=== PATIENT | male | born 1970 | race Caucasian/White ===

== ENCOUNTER 2022-04-21 13:38 | Emergency (ER) | payer OTHER, SELFPAY ==
[2022-04-21 13:39] VITALS: BP 138/108; PULSE 121; RESP 18; TEMP 35.9; O2SAT 97; BMI 29.2
--- NOTE | 2022-04-21 14:55 | CT_ITS ---
STUDY: CT ABDOMEN AND PELVIS WITH CONTRAST REASON FOR EXAM: Male, 51 years old. pain, fever, guarding percussion tenderness RADIATION DOSAGE (If Supplied By Facility): CTDIvol = ( 14.57 ) mGy, DLP = ( 824.29 ) mGycm TECHNIQUE: Transaxial images were obtained from the dome of the diaphragm to the symphysis pubis without oral contrast. IV 100mL Isovue-370 was administered. Sagittal and coronal images were reconstructed. Individualized dose optimization techniques were used for this CT. COMPARISON: None. FINDINGS: The visualized lung bases are unremarkable. The visualized portions of the heart are within normal limits. Normal liver. Normal gallbladder and extrahepatic biliary system. Normal spleen. Normal pancreas. Normal bilateral adrenal glands. Normal right kidney. Normal left kidney. Normal visualized stomach. Normal small intestine. Diverticular disease of the colon with most severe involvement of the descending and sigmoid segments without evidence for acute diverticulitis.. The appendix is visualized and appears normal. Normal abdominal aorta. Normal inferior vena cava. Normal retroperitoneum. Normal urinary bladder. Mild nonspecific prominence of the prostate Normal abdominal wall. Lumbar spine demonstrates degenerative change.. There is Grade 1 spondylolisthesis at L5-S1 in association with bilateral spondylolysis CT/Abdomen/Pelvis W IV Cont ONLY IMPRESSION: Diffuse diverticular disease of the colon with most severe involvement of the descending and sigmoid colon without definitive evidence for acute diverticulitis.. However clinical correlation is recommended No evidence for small bowel obstruction. Normal appendix Electronically Signed: Freddie Tong MD at 16:15 EST ,
--- NOTE | 2022-04-21 14:57 | ED.VIS.GI ---
HPI HPI - GI History of Present Illness Chief Complaint: Abd Pain Detail of Chief Complaint: Monty pain, which patient believes is due to a hernia Abdominal Pain/Flank Pain Onset: Days (Pain worse past 24 hours) Context: Sudden Onset Timing: Intermittent and Waxes and wanes Quality: - (Pain) Location: LLQ Current Severity: Mild Maximum Severity: Severe Worsened by: Car ride and Movement Relieved by: Nothing Nausea/Vomiting/Emesis GI Symptom: Negative for Nausea or Vomiting Diarrhea/Melena/Hematochezia GI Symptom: Positive for - (Normal bowel movement this morning); Negative for Diarrhea, Melena or Hematochezia Associated Symptoms Associated Symptoms: Negative for Dysuria, Frequency, Hematuria or Urgency Narrative Narrative: Patient is a 51-year-old male who presents with pain that he localizes to the suprapubic left lower quadrant. He has no medical problems. He does admit to chewing. He does drink 3 beers a day. He denies history of intolerance to greasy or fatty foods. He denies history of pancreatitis. He denies history of constipation or diverticulosis. He denies fever, chills night sweats. He presents from work. He felt he was warm at work. He states he thought he was burning up . Patient denies headache, visual, ocular auditory symptoms. Patient denies cardiac or respiratory symptoms. Patient denies back pain. Patient denies abdominal trauma. Patient denies dysuria, frequency, urgency or hematuria. Patient denies testicular or scrotal pain. Patient denies swelling. Patient denies weight gain or weight loss. Patient denies night sweats. Prior similar symptoms: Yes Recent Illness/Hospitalization: No PFSH PFS Medical History Cardiomegaly Hypertension Home Medications ciprofloxacin HCl 500 mg tablet 500 mg PO BID #14 TABLETS 04/21/22 [Rx Last Taken Unknown] sulfamethoxazole 800 mg-trimethoprim 160 mg tablet 1 tab PO BID #14 TABLETS 04/21/22 [Rx Last Taken Unknown] Allergy/AdvReac Type Severity Reaction Status Date / Time No Known Allergies Allergy Verified 04/21/22 13:40 Surgical History no surgical history no surgical history Social History (Updated 04/21/22 @ 15:[address] Pranav Coello MD) household members: none Smoking Status: Former smoker Smokeless tobacco user: chewing tobacco alcohol intake: current alcohol intake frequency: 3 or more drinks per day substance use type: does not use ROS ROS ED Constitutional Constitutional ED: Reports fever(s) and subjective; Denies chills, sweats or weight loss ENT ENT ED: Denies ear pain, rhinorrhea or sore throat Cardiovascular Cardiovascular: Denies chest pain, palpitations or racing heartbeat Respiratory/Chest Respiratory/Chest: Denies cough, dyspnea or dyspnea on exertion Gastrointestinal Gastrointestinal: Reports abdominal pain; Denies constipation, diarrhea, melena, nausea or vomiting Genitourinary Genitourinary ED: Denies dysuria, hematuria or urinary frequency Musculoskeletal Musculoskeletal: Denies arthralgias, back pain, myalgias or neck pain Integumentary Denies Abrasions or rash Neurologic Neurologic: Denies headache(s), paresthesias or weakness Endocrine Endocrinology: Denies polydipsia, polyphagia or polyuria Hematologic/Lymphatic Hematologic/Lymphatic: Denies easy bleeding, easy bruising or lymphadenopathy EXAM Physical Exam Const Vital Signs: 04/21/22 13:39 04/21/22 15:39 04/21/22 17:00 Temperature 96.7 F L Temperature Source Temporal Pulse Rate 121 H 75 72 Respiratory Rate 18 16 18 Blood Pressure 138/108 H 124/75 H 122/74 H Blood Pressure Mean 118 91 90 Pulse Ox 97 97 99 Oxygen Delivery Method Room Air Room Air Room Air Positive well nourished, well developed and unkempt Constitutional Narrative: Patient does not appear well. General Appearance ED: unkempt and well developed; Negative for NAD or pallor HEENT Reports TM's clear and dry mucous membranes HEENT Narrative: Ears are normal. Nares are patent. Posterior pharynx is normal. normocephalic and atraumatic Tympanic Membrane ED: Yes TM's clear Mouth ED: Yes dry mucous membranes Mouth: dry mucous membranes Eyes PERRL and EOMs intact bilaterally General Eye ED: Negative for pale conjunctiva or scleral icterus Neck no lymphadenopathy, supple and no JVD Resp normal respiratory effort and clear to auscultation bilaterally Cardio regular rhythm, S1 normal heart sound, S2 normal heart sound and no murmurs Rate: tachycardic GI no masses; Negative for non-tender or non-distended Inspection: abdominal distention Auscultation: hyperactive bowel sounds Palpation: soft, tender other (Diffusely), guarding LLQ (Greater left upper and left lower quadrant compared to the right side.) and rebound tenderness present other (Patient has percussion tenderness on the left side.); Negative for rigid, hepatomegaly, splenomegaly, hernia, mass or pulsatile mass Narrative: There is no evidence of inguinal hernia or inguinal lymphadenopathy. Back/Spine no CVA tenderness Back/Spine Narrative: Inspection of the back is normal. Extremity full ROM General Extremety ED: Negative for edema or tenderness General Extremity: Negative for edema Neuro CN's II-XII intact bilaterally and moves all extremities Sensorium / Orientation: alert Psych Appearance: unkempt Skin no wounds General Skin Exam: Negative for jaundice or pallor Lesions: no lesions MDM MDM MDM Narrative Medical decision making narrative: Clinically patient appears dehydrated and ill. His abdominal exam is concerning. Since he is tachycardic with guarding and percussion tenderness need to evaluate for intra-abdominal pathology and specifically diverticulitis, epiploic appendicitis, possible pancreatitis since he does admit to drinking daily. Clinically patient does not have signs or symptoms of pneumonia. To evaluate patient's presentation we will obtain a CBC to assess white count differential. Competence metabolic panel to assess electrolytes, renal function and anion gap CO2. Furthermore to assess transaminases. UA was not obtained since patient has no urinary symptoms. His abdominal exam is not consistent with a hernia. Lab Data Attestation: I reviewed the patient's lab results. Lab results narrative: CBC reveals normal white count with slight shift. Comprehensive metabolic panel is unremarkable. Total bilirubin is 1.4 which is slightly elevated. Lactate elevated 2.2. Labs: Laboratory Results - last 24 hr 04/21/22 04/21/22 04/21/22 15:15 15:15 15:15 WBC 8.7 RBC 4.84 Hgb 14.8 Hct 43.9 MCV 90.7 MCH 30.6 MCHC 33.7 RDW Std Deviation 41.1 RDW Coeff of Junito 12.5 Plt Count 332 MPV 9.4 Immature Gran % (Auto) 0.300 Neut % (Auto) 75.3 H Lymph % (Auto) 13.6 L [place] % (Auto) 9.9 Eos % (Auto) 0.1 Baso % (Auto) 0.8 Absolute Neuts (auto) 6.6 Absolute Lymphs (auto) 1.19 Nucleated RBC % 0 Sodium 138 Potassium 4.2 Chloride 101 Carbon Dioxide 26.0 Anion Gap 11 BUN 17 Creatinine 1.06 Estim Creat Clear Calc 74.40 Est GFR (MDRD) Af Amer 94 Est GFR (MDRD) Non-Af 78 BUN/Creatinine Ratio 16.0 Glucose 111 H Lactic Acid 2.2 H* Calcium 9.6 Total Bilirubin 1.40 H AST 38 H ALT 22 Alkaline Phosphatase 84 Total Protein 7.7 Albumin 4.0 Globulin 3.7 Albumin/Globulin Ratio 1.1 Lipase 77 Radiography Diagnostic Testing: Clinical Impression(s) from Imaging Studies Abdomen/Pelvis CT 04/21/22 14:55 IMPRESSION: Diffuse diverticular disease of the colon with most severe involvement of the descending and sigmoid colon without definitive evidence for acute diverticulitis.. However clinical correlation is recommended No evidence for small bowel obstruction. Normal appendix Electronically Signed: Freddie Tong MD at 16:15 EST Reading Location ID and State: [address] [place] [address] , Service support , Treatment and Re-Evaluation Narrative: With patient's complaints CAT scan finding and the fact that he has significant discomfort we will treat with Augmentin. He has been told he needs increased fiber in his diet. He was referred to through the [facility] since he has no physician and no insurance. Since he has no insurance and will have the papers prescription he was was prescribed Bactrim and ciprofloxacin. Metronidazole was not prescribed since he admits to drinking daily. Discharge Plan Triage Chief Complaint: Abd Pain ED Provider: Pranav Coello Dx/Rx/DC Orders Clinical Impression: Diverticulitis large intestine, Acidosis, lactic, Sinus tachycardia seen on cardiac monitor technician Instructions: ED Diverticulitis Prescriptions: New ciprofloxacin HCl [ciprofloxacin HCl] 500 mg tablet 500 mg PO BID Qty: 14 0RF sulfamethoxazole-trimethoprim [sulfamethoxazole-trimethoprim] 800-160 mg tablet 1 tab PO BID Qty: 14 0RF Primary Care Provider: Care Physician,No Primary Referrals: Briana White [Non-Staff] - 3-5 Days if not improving Care Physician,No Primary [Primary Care Provider] - Disposition Disposition: Home, Self Care
[2022-04-21] MEDS: Morphine 4 MG/ML Syringe IV (15:16)
[2022-04-21] MEDS: Contrast Allergy Safety Check IV (15:17)
[2022-04-21] MEDS: 0.9% Normal Saline 1,000 ML 1000 ML IV (15:17)
[2022-04-21 15:28] LABS: Absolute Lymphocyte Count 1.19 X10^3/uL (0.83-4.51); Absolute Neutrophil Count 6.6 X10^3/uL (2.0-7.7); Basophil# 0.07 X10^3/uL; Basophil% 0.8 % (0-1); Eosinophil# 0.01 X10^3/uL; Eosinophils% 0.1 % (0-5); Hematocrit 43.9 % (40-54); Hemoglobin 14.8 g/dL (13.0-16.5); Lymphocyte # 1.19 X10^3/ul (0.83-4.51); Lymphocyte % 13.6 % (19-41); Mean Corp Hgb Conc 33.7 g/dL (32-36); Mean Corpuscular Hgb 30.6 pg (27.0-32.0); Mean Corpuscular Volume 90.7 fL (80-94); Mean Platelet Vol. 9.4 fl (6.2-12.0); Monocyte# 0.86 X10^3/uL; Monocyte% 9.9 % (0-10); NRBC Flagged by Analyzer 0 % (0-5); Neutrophil # 6.57 X10^3/uL (2.7-7.7); Neutrophil % 75.3 % (47-70); Platelet Count 332 K/mm3 (150-450); RBC Distribution Width CV 12.5 % (11.6-14.6); RBC Distribution Width SD 41.1 fl (35.1-43.9); Red Blood Count 4.84 M/mm3 (4.6-6.2); White Blood Count 8.7 K/mm3 (4.4-11.0)
[2022-04-21 15:39] VITALS: BP 124/75; PULSE 75; RESP 16; O2SAT 97
--- NOTE | 2022-04-21 15:41 | CM.ED ---
YAA Note Referral Source: Case Find Referral Reason: No Primary Care Physician (PCP) YAA reviewed chart and noted that patient has no PCP. SW provided patient with list of [facility] List for reference. SW also provided with medicaid application as patient has no insurance and per registration is 9 days away from getting his insurance. No other issues or concerns voiced at this time. SW remains available for any additional needs. Plan: Provided patient with PCP information [facility]NALES
[2022-04-21 15:45] LABS: ALB/GLOB Ratio 1.1 RATIO (0.9-2.4); AST(SGOT) 38 U/L (15-37); Alanine Aminotransfer ALT/SGPT 22 U/L (16-61); Alkaline Phosphatase 84 U/L (45-117); Anion Gap 11 (5-15); BUN 17 mg/dL (7-18); Calcium,Total 9.6 mg/dL (8.5-10.1); Chloride 101 mmol/L (98-107); Creatinine, Serum 1.06 mg/dL (0.70-1.30); EST Glomerular Filtration Rate 78 mL/min (>60); Est Glom Filt Rate - Afr Amer 94 mL/min (>60); Globulin 3.7 g/dL (2.2-4.2); Glucose 111 mg/dL (74-106); Lipase 77 U/L (73-393); Potassium 4.2 mmol/L (3.5-5.1); Protein, Total 7.7 g/dL (6.4-8.2); Sodium Level 138 mmol/L (136-145)
[2022-04-21 16:21] LABS: Lactic Acid 2.2 mmol/L (0.4-1.9)
[2022-04-21 17:00] VITALS: BP 122/74; PULSE 72; RESP 18; O2SAT 99
[2022-04-21] MEDS: Amox/Clavulanate 875 MG Tablet PO (18:25)
[2022-04-21 18:30] VITALS: BP 135/74; PULSE 82; RESP 16; TEMP 36.7; O2SAT 97
[2022-04-21 19:17] LABS: Reflex Lactate? Y
== END 2022-04-21 18:33 | disposition home or self-care (01) ==
PROVIDERS: Emergency Provider Emergency Medicine; Visit Provider Emergency Medicine
DX: K57.32 Diverticulitis of large intestine without perforation or abscess without bleeding (principal); E87.20 Acidosis, unspecified; R00.0 Tachycardia, unspecified; I10 Essential (primary) hypertension; Z87.891 Personal history of nicotine dependence
CPT/HCPCS: 74177; 80053; 83605; 83690; 85025; 96361; 96374; 99284; J7030; Q9967

== ENCOUNTER 2022-09-23 20:15 | Emergency (ER) | payer OTHER, SELFPAY ==
[2022-09-23 20:16] VITALS: BP 128/99; PULSE 116; RESP 15; TEMP 36.8; O2SAT 97; BMI 30.4
--- NOTE | 2022-09-23 21:42 | CT_ITS ---
STUDY: CT ABDOMEN AND PELVIS WITHOUT CONTRAST REASON FOR EXAM: Male, 52 years old. Pain RADIATION DOSAGE (If Supplied By Facility): CTDIvol = ( 13.41 ) mGy, DLP = ( 639.90 ) mGycm TECHNIQUE: Transaxial images were obtained from the dome of the diaphragm to the symphysis pubis without oral contrast, and without intravenous contrast. Sagittal and coronal images were reconstructed. Individualized dose optimization techniques were used for this CT. COMPARISON: April 21, 2022 FINDINGS: The visualized lung bases are unremarkable. The visualized portions of the heart are within normal limits. There is decreased attenuation of the liver consistent with steatosis. Normal gallbladder and extrahepatic biliary system. Normal spleen. Normal pancreas. Normal bilateral adrenal glands. Normal right kidney. Normal left kidney. Normal visualized stomach. Normal small intestine. There are multiple colonic diverticula consistent with diverticulosis. The appendix is visualized and appears normal. Normal abdominal aorta. Normal inferior vena cava. Normal retroperitoneum. Normal urinary bladder. There is no free fluid in the abdomen or pelvis. Normal abdominal wall. There is grade 1 spondylolisthesis at L5-S1 with bilateral pars interarticularis defects of L5. CT/Abdomen/Pelvis without Cont IMPRESSION: Colonic diverticulosis. No obstruction or abscess. Fatty infiltration of the liver. Spondylolisthesis with spondylolysis. Electronically Signed: Sanford Bajwa MD at 23:19 EDT ,
--- NOTE | 2022-09-23 21:43 | EDS_ITS ---
HPI HPI - GI History of Present Illness Chief Complaint: Abd Pain Detail of Chief Complaint: Abdominal pain Informant: patient Narrative Narrative: Patient presents to the emergency department complaint of abdominal pain that started 2 days ago. Patient denies any fevers. He denies blood in his stool or black tarry stool. Patient states that he had 1 diarrheal stool and one loose stool. Denies sick contacts as far as he knows. Patient denies urinary symptoms. Patient states that he was seen in the emergency department in March of this year with similar complaint. [facility] Medical History (Updated 09/23/22 @ 23:[address] Darwin Steve DO) Cardiomegaly Diverticulitis Hypertension Home Medications ciprofloxacin HCl 500 mg tablet 500 mg PO BID #14 TABLETS 04/21/22 [Rx Last Taken Unknown] sulfamethoxazole 800 mg-trimethoprim 160 mg tablet 1 tab PO BID #14 TABLETS 03/26 10/14 [Rx Last Taken Unknown] amoxicillin 875 mg-potassium clavulanate 125 mg tablet 875 mg (0.875 x 875-125 mg) PO Q12H #20 TABLETS 09/23/22 [Rx Last Taken Unknown] Allergy/AdvReac Type Severity Reaction Status Date / Time No Known Allergies Allergy Verified 09/23/22 20:19 Social History (Updated 04/21/22 @ 15:[address] Pranav Coello MD) household members: none Smoking Status: Former smoker Smokeless tobacco user: chewing tobacco alcohol intake: current alcohol intake frequency: 3 or more drinks per day substance use type: does not use ROS ROS ED Review of Systems ROS Unobtainable: other Constitutional Constitutional ED: Reports lethargy; Denies chills, fever(s), sweats or weight loss Eyes Eyes: Denies blurry vision, change in vision or diplopia ENT ENT ED: Denies rhinorrhea or sore throat Cardiovascular Cardiovascular: Denies chest pain, orthopnea or racing heartbeat Respiratory/Chest Respiratory/Chest: Denies cough, dyspnea, dyspnea on exertion, orthopnea or sputum Gastrointestinal Gastrointestinal: Reports abdominal pain; Denies diarrhea, nausea or vomiting Genitourinary Genitourinary ED: Denies dysuria, hematuria or urinary frequency Musculoskeletal Musculoskeletal: Denies arthralgias, back pain, myalgias or neck pain Integumentary Denies abscess, Abrasions or rash Neurologic Neurologic: Denies headache(s) or weakness Psychiatric Psychiatric: Denies anxiety, depression or suicidal thoughts Endocrine Endocrinology: Denies polydipsia, polyphagia or polyuria Hematologic/Lymphatic Hematologic/Lymphatic: Denies easy bleeding, easy bruising or lymphadenopathy Allergic/Immunologic Allergic/Immunologic ED: Denies mouth swelling, tongue swelling or urticaria EXAM Physical Exam Const Vital Signs: 09/23/22 20:16 Temperature 98.3 F Temperature Source Temporal Pulse Rate 116 H Respiratory Rate 15 Blood Pressure 128/99 H Blood Pressure Mean 108 Pulse Ox 97 Oxygen Delivery Method Room Air Positive well nourished and well developed General Appearance ED: well developed and NAD HEENT Reports TM's clear and moist mucous membranes normocephalic and atraumatic; Negative for trauma or tenderness Tympanic Membrane ED: Yes TM's clear Eyes PERRL and EOMs intact bilaterally General Eye ED: Negative for pale conjunctiva or scleral icterus Neck no lymphadenopathy, supple and no JVD General: Negative for tenderness Chest Wall inspection of chest normal and palpation of chest normal Chest: Negative for tenderness Resp normal respiratory effort and clear to auscultation bilaterally Effort and Inspection: Negative for respiratory distress or pain with movement Auscultation: Negative for rhonchi, wheezes or diminished lung sounds Cardio regular rate, regular rhythm, S1 normal heart sound, S2 normal heart sound and no murmurs Peripheral Pulses: pulses 2+ throughout GI normal to inspection, nondistended, normoactive bowel sounds, soft to palpation, non-distended and no masses GI Narrative: Tenderness palpation over right lower quadrant as well as suprapubic region and left lower quadrant. There is guarding. There is no rebound, rigidity, or peritoneal signs. Back/Spine no CVA tenderness and no thoracic nor lumbar tenderness Extremity normal to inspection General Extremety ED: Negative for edema General Extremity: Negative for edema Neuro oriented x3, CN's II-XII intact bilaterally, no sensory deficits noted and gait normal Sensorium / Orientation: awake, alert, oriented to person, oriented to place and oriented to time Motor Exam: strength 5/5 throughout and strength abnormal Psych mental status grossly normal Skin no rashes or lesions noted and no wounds MDM MDM MDM Narrative Medical decision making narrative: IV line established on arrival. Patient will have labs ordered as well as CT scan of the abdomen pelvis to evaluate further. In the differential would be appendicitis versus diverticulitis versus kidney stone or other acute intra- abdominal process. Hemoglobin was normal. Chemistries were normal. Lactate obtained was slightly elevated 2.7. Clinically I do not feel patient has an ischemic gut. Patient had a CT scan of the abdomen pelvis that showed diverticulosis but no evidence of diverticulitis or other acute disease process. Patient was started on Augmentin p.o. as I suspect he may have early diverticu litis. Patient states last time he had similar episode he was started on antibiotics and did well with that. Patient will be referred to general surgeon on-call for follow-up within next 3 to 5 days. He is advised to return if worsening pain, fever, vomiting, or condition should worsen anyway. Lab Data Attestation: I reviewed the patient's lab results. Labs: Laboratory Results - last 24 hr 09/23/22 09/23/22 22:04 22:20 WBC 6.0 RBC 4.69 Hgb 14.9 Hct 44.4 MCV 94.7 H MCH 31.8 MCHC 33.6 RDW Std Deviation 47.5 H RDW Coeff of Junito 13.6 Plt Count 216 MPV 9.3 Immature Gran % (Auto) 0.200 Neut % (Auto) 59.3 Lymph % (Auto) 28.5 [place] % (Auto) 10.4 H Eos % (Auto) 0.8 Baso % (Auto) 0.8 Absolute Neuts (auto) 3.5 Absolute Lymphs (auto) 1.70 Nucleated RBC % 0 Sodium 139 Potassium 4.2 Chloride 104 Carbon Dioxide 27.0 Anion Gap 8 BUN 13 Creatinine 1.28 Estim Creat Clear Calc 60.92 Est GFR (MDRD) Af Amer 76 Est GFR (MDRD) Non-Af 63 BUN/Creatinine Ratio 10.2 Glucose 111 H Lactic Acid 2.7 H* Calcium 8.8 Urine Color Yellow Urine Clarity Clear Urine pH 5.0 Ur Specific [place] 1.030 Urine Protein 15 H Urine Glucose (UA) Normal Urine Ketones 5 H Urine Occult Blood 25 H Urine Nitrite Negative Urine Bilirubin Negative Urine Urobilinogen Normal Ur Leukocyte Esterase Negative Urine RBC 0-5 SEEN Urine WBC 0 SEEN Ur Squamous Epith Cells 0 SEEN Urine Bacteria 0 SEEN Urine Mucus 0 SEEN Radiography Diagnostic Testing: Clinical Impression(s) from Imaging Studies Abdomen/Pelvis CT 09/23/22 21:42 IMPRESSION: Colonic diverticulosis. No obstruction or abscess. Fatty infiltration of the liver. Spondylolisthesis with spondylolysis. Electronically Signed: Sanford Bajwa MD at 23:19 EDT , Discharge Plan Triage Chief Complaint: Abd Pain ED Provider: Darwin Steve Dx/Rx/DC Orders Clinical Impression: Abdominal pain Instructions: ED Abdominal Pain Unkn Cause Male... Prescriptions: New amoxicillin-pot clavulanate [amoxicillin-pot clavulanate] 875-125 mg tablet 875 mg PO Q12H Qty: 20 0RF No Action ciprofloxacin HCl [ciprofloxacin HCl] 500 mg tablet 500 mg PO BID Qty: 14 0RF sulfamethoxazole-trimethoprim [sulfamethoxazole-trimethoprim] 800-160 mg tablet 1 tab PO BID Qty: 14 0RF Primary Care Provider: Care Physician,No Primary Referrals: Essence George MD [Med Staff - Active Staff] - 3-5 Days Care Physician,No Primary [Primary Care Provider] - Disposition Disposition: Home, Self Care
[2022-09-23 22:12] LABS: Absolute Neutrophil Count 3.5 X10^3/uL (2.0-7.7); Basophil# 0.05 X10^3/uL; Basophil% 0.8 % (0-1); Eosinophil# 0.05 X10^3/uL; Eosinophils% 0.8 % (0-5); Hematocrit 44.4 % (40-54); Hemoglobin 14.9 g/dL (13.0-16.5); Lymphocyte % 28.5 % (19-41); Mean Corp Hgb Conc 33.6 g/dL (32-36); Mean Corpuscular Hgb 31.8 pg (27.0-32.0); Mean Corpuscular Volume 94.7 fL (80-94); Mean Platelet Vol. 9.3 fl (6.2-12.0); Monocyte# 0.62 X10^3/uL; Monocyte% 10.4 % (0-10); NRBC Flagged by Analyzer 0 % (0-5); Neutrophil # 3.53 X10^3/uL (2.7-7.7); Neutrophil % 59.3 % (47-70); Platelet Count 216 K/mm3 (150-450); RBC Distribution Width CV 13.6 % (11.6-14.6); RBC Distribution Width SD 47.5 fl (35.1-43.9); Red Blood Count 4.69 M/mm3 (4.6-6.2)
[2022-09-23 22:27] LABS: Bacteria 0 SEEN /hpf (None Seen); Mucous, Urine 0 SEEN /hpf (<or=2+); Squamous Epithelial Cells - UA 0 SEEN /hpf (0-5); White Blood Cells 0 SEEN /hpf (0-5)
[2022-09-23] MEDS: 0.9% Normal Saline 1,000 ML 125 ML IV (22:29)
[2022-09-23 22:42] LABS: Anion Gap 8 (5-15); BUN 13 mg/dL (7-18); BUN/Creat Ratio 10.2 RATIO (10-20); Calcium,Total 8.8 mg/dL (8.5-10.1); Chloride 104 mmol/L (98-107); Creatinine, Serum 1.28 mg/dL (0.70-1.30); EST Glomerular Filtration Rate 63 mL/min (>60); Est Glom Filt Rate - Afr Amer 76 mL/min (>60); Estimated Creatinine Clearance 60.92 ml/min; Glucose 111 mg/dL (74-106); Potassium 4.2 mmol/L (3.5-5.1); Sodium Level 139 mmol/L (136-145)
[2022-09-23 22:44] LABS: Color, Urine Yellow (Yellow); Glucose, Dipstick Normal (Normal); Ketone-Dipstick 5 mg/dl (Negative); Leukocyte Esterase-Dipstick Negative /ul (Negative); Nitrite-Dipstick Negative (Negative); Occult Blood-Urine 25 /ul (Negative); Protein-Dipstick 15 mg/dl (Negative); Urine Bilirubin Dipstick Negative (Negative); Urine Clarity Clear (Clear); Urine Urobilinogen Normal (Normal)
[2022-09-23 22:56] LABS: Red Blood Cells-Urine 0-5 SEEN /hpf (0-5)
[2022-09-23 23:08] LABS: Lactic Acid 2.7 mmol/L (0.4-1.9)
[2022-09-23] MEDS: Amox/Clavulanate 875 MG Tablet PO (23:40)
[2022-09-23 23:43] VITALS: BP 138/79; PULSE 82; RESP 20; O2SAT 98
[2022-09-24 02:09] LABS: Reflex Lactate? Y
== END 2022-09-23 23:44 | disposition home or self-care (01) ==
PROVIDERS: Emergency Provider Emergency Medicine; Visit Provider Emergency Medicine
DX: R10.9 Unspecified abdominal pain (principal); I10 Essential (primary) hypertension; F17.220 Nicotine dependence, chewing tobacco, uncomplicated
CPT/HCPCS: 74176; 80048; 81001; 83605; 85025; 96360; 99283; J7030; A4216

== ENCOUNTER 2022-11-11 14:35 | Emergency (ER) | payer OTHER, SELFPAY ==
[2022-11-11 14:36] VITALS: BP 159/116; PULSE 120; RESP 18; TEMP 35.9; O2SAT 99
--- NOTE | 2022-11-11 14:40 | ED.VIS.CHEST ---
HPI History of Present Illness Chief Complaint: Shortness of Breath PFSH PFS Medical History (Updated 10/01/22 @ 00:01 by Background Dustin) Cardiomegaly Diverticulitis Hypertension Home Medications ciprofloxacin HCl 500 mg tablet 500 mg PO BID #14 TABLETS 04/21/22 [Rx Last Taken Unknown] sulfamethoxazole 800 mg-trimethoprim 160 mg tablet 1 tab PO BID #14 TABLETS 04/21/22 [Rx Last Taken Unknown] amoxicillin 875 mg-potassium clavulanate 125 mg tablet 875 mg (0.875 x 875-125 mg) PO Q12H #20 TABLETS 09/23/22 [Rx Last Taken Unknown] Allergy/AdvReac Type Severity Reaction Status Date / Time No Known Allergies Allergy Verified 11/11/22 14:35 Social History (Updated 04/21/22 @ 15:[address] Pranav Coello MD) household members: none Smoking Status: Former smoker Smokeless tobacco user: chewing tobacco alcohol intake: current alcohol intake frequency: 3 or more drinks per day substance use type: does not use EXAM Physical Exam Const Vital Signs: 11/11/22 14:36 Temperature 96.6 F L Temperature Source Temporal Pulse Rate 120 H Respiratory Rate 18 Blood Pressure 159/116 H Blood Pressure Mean 130 Pulse Ox 99 Oxygen Delivery Method Room Air MDM MDM MDM Narrative Medical decision making narrative: HISTORY OF PRESENT ILLNESS: 52-year-old male here with sudden onset of shortness of breath and chest pain. The patient denies recent surgery in the last 4 weeks or immobilization in the last 3 days, denies previous diagnosis of DVT or PE, hemoptysis, unilateral leg swelling or malignancy with treatment the last 6 months or palliative. No estrogen use noted. REVIEW OF SYSTEMS: Pertinent positives: Chest pain, shortness of breath Pertinent negatives: [] PHYSICAL EXAM: Nursing triage notes reviewed, Vital signs reviewed Constitutional: please see mdm HENT: MMM Eyes: Pupils equal round and reactive to light, Extraocular muscles intact Neck: No stridor, no JVD, full neck ROM Lungs: Clear to auscultation, No wheezing or rales. No increased work of breathing, no conversational dyspnea, no accessory muscle use, no nasal flaring. No respiratory distress noted Heart: Regular rate and rhythm, No murmurs, No rubs and No gallops, 2+ distal pulses (radial, femoral, posterior tibial) in all extremities Abdomen: Soft, there is no tenderness, rigidity, rebound or guarding, no obvious peritoneal signs, no palpable pulsatile abdominal masses, no auscultated abdominal bruit : No CVAT Extremities: No edema Neuro: No focal neurological deficits, cranial nerves II through XII intact, 5/5 strength in all extremities. Intact sensation to light touch in all extremities, 2+ reflexes bilateral patella tendons. Normal gait. No ataxia. Skin: No rash or lesions noted MEDICAL DECISION MAKING: Chief Complaint: Chest pain, shortness of breath External records reviewed: No recent echocardiograms noted in the chart Factors affecting care: hypertension, hyperlipidemia, cardiomegaly Social determinants of health: none [] History obtained from others: none [] Consults: none [] ALL IMAGES (IF OBTAINED) HAVE BEEN PERSONALLY REVIEWED AND INTERPRETED BY MYSELF. MDM Narrative: Patient was hypertensive, tachycardic, afebrile. I considered the following differential diagnosis: ACS, PE, anemia, dissection [] The patient and/or family, caregivers express understanding. The patient and/or family, caregivers agrees with the plan. Shared decision making: I will have a discussion with the patient and or visitors regarding risk/benefits of further testing or admission. They will be made aware of of the risk/benefits inherent in this decision they will be given the opportunity to voice understanding. Total critical care time today provided was at least 0 [] minutes. This excludes separately billable procedures. Critical care time (if documented) is secondary to the patient having high probability of clinically significant/life threatening deterioration in the patient's condition which required my urgent intervention. Impression: [] Dispo: [] Discharge Plan Triage Chief Complaint: Shortness of Breath Other Complaint: Chest Pain ED Provider: Provider,Ed Physician Dx/Rx/DC Orders Prescriptions: No Action ciprofloxacin HCl [ciprofloxacin HCl] 500 mg tablet 500 mg PO BID Qty: 14 0RF sulfamethoxazole-trimethoprim [sulfamethoxazole-trimethoprim] 800-160 mg tablet 1 tab PO BID Qty: 14 0RF amoxicillin-pot clavulanate [amoxicillin-pot clavulanate] 875-125 mg tablet 875 mg PO Q12H Qty: 20 0RF Primary Care Provider: Care Physician,No Primary Referrals: Care Physician,No Primary [Primary Care Provider] -
--- NOTE | 2022-11-11 14:41 | EKG12_ITS ---
Test Reason : CP Blood Pressure : / mmHG Vent. Rate : 122 BPM Atrial Rate : 122 BPM P-R Int : 142 ms QRS Dur : 086 ms QT Int : 308 ms P-R-T Axes : 064 078 041 degrees QTc Int : 438 ms Poor data quality, interpretation may be adversely affected Sinus tachycardia Otherwise normal ECG Confirmed by DAVID NOLAND, KRISTIE ([id number]), scientific editor MARTY STARK ([id number]) on 11/17/2022 10:46:34 AM Referred By: EDPHYS Confirmed By:LASHAUN HERNANDEZ MD
--- NOTE | 2022-11-11 14:51 | NURSING ---
NO OLD EKG
--- NOTE | 2022-11-11 15:09 | CT_ITS ---
STUDY: CTA CHEST REASON FOR EXAM: Male, 52 years old. chest pain r/o PE RADIATION DOSAGE (If Supplied By Facility): CTDIvol = ( 9.62 ) mGy, DLP = ( 425.39 ) mGycm TECHNIQUE: The examination was performed with the intravenous administration of IV 100mL Isovue-370. Post-processing of the angiographic images was performed, with multiplanar reformation and 3D reconstruction. Individualized dose optimization techniques were used for this CT. COMPARISON: None. FINDINGS: Normal enhancement of the main pulmonary artery and right and left pulmonary arteries. Normal enhancement of the bilateral peripheral pulmonary arteries. There is no demonstrated pulmonary embolism. Normal thoracic aorta and visualized great vessels. There is no demonstrated aortic dissection. Normal heart and pericardium. Normal mediastinum. Normal hilar regions. Normal visualized trachea and bronchi. The lungs are well expanded. Minimal atelectasis within the dependent portion of the right lower lobe The lungs are otherwise clear. Normal pleura. Normal chest wall structures. Dorsal spine demonstrates degenerative change. Small hiatal hernia is noted. Normal visualized upper abdomen. CT/CTA Chest W/WO Contrast IMPRESSION: No acute cardiac pulmonary pathology. Specifically no evidence for pulmonary embolus. Electronically Signed: Freddie Tong MD at 16:12 EDT ,
--- NOTE | 2022-11-11 15:11 | ED.VIS.CHEST ---
HPI History of Present Illness Chief Complaint: Shortness of Breath [facility] Medical History Cardiomegaly Diverticulitis Hypertension Home Medications NK 11/11/22 [History Last Taken Unknown] Allergy/AdvReac Type Severity Reaction Status Date / Time No Known Allergies Allergy Verified 11/11/22 14:35 Social History (Updated 04/21/22 @ 15:[address] Pranav Coello MD) household members: none Smoking Status: Unknown if ever smoked Smokeless tobacco user: chewing tobacco alcohol intake: current alcohol intake frequency: 3 or more drinks per day substance use type: does not use EXAM Physical Exam Const Vital Signs: 11/11/22 18:28 Pulse Rate 89 Respiratory Rate 16 Blood Pressure 128/75 H Pulse Ox 95 Heart Score History: Slightly/Non-Suspicious ECG: Normal Age: >45 - <65 years Risk Factors: No Risk Factors Troponin: </= Normal Limit Score: 1 MDM MDM MDM Narrative Medical decision making narrative: HISTORY OF PRESENT ILLNESS: 52-year-old male here with acute onset of chest pain difficulty breathing occurred prior to arrival. States he has left-sided chest pain that is not ripping or tearing and is non-radiating. No hemoptysis. The patient denies recent surgery in the last 4 weeks or immobilization in the last 3 days, denies previous diagnosis of DVT or PE, hemoptysis, unilateral leg swelling or malignancy with treatment the last 6 months or palliative. No estrogen use noted. Patient denies sudden onset of pain, no tearing sensation, no migratory symptoms, no new numbness, weakness or loss of sensation. Patient denies family history or personal history of Connective tissue disorders (Marfan's Syndrome, Williams Danlos etc) REVIEW OF SYSTEMS: Pertinent positives: Chest pain, shortness of breath Pertinent negatives: Syncope PHYSICAL EXAM: Nursing triage notes reviewed, Vital signs reviewed Constitutional: please see mdm HENT: MMM Eyes: Pupils equal round and reactive to light, Extraocular muscles intact Neck: No stridor, no JVD, full neck ROM Lungs: Clear to auscultation, No wheezing or rales. No increased work of breathing, no conversational dyspnea, no accessory muscle use, no nasal flaring. No respiratory distress noted Heart: Fast rate and rhythm, No murmurs, No rubs and No gallops, 2+ distal pulses (radial, femoral, posterior tibial) in all extremities Abdomen: Soft, there is no tenderness, rigidity, rebound or guarding, no obvious peritoneal signs, no palpable pulsatile abdominal masses, no auscultated abdominal bruit : No CVAT Extremities: No edema Neuro: No focal neurological deficits, cranial nerves II through XII intact, 5/5 strength in all extremities. Intact sensation to light touch in all extremities, 2+ reflexes bilateral patella tendons. Normal gait. No ataxia. Skin: No rash or lesions noted MEDICAL DECISION MAKING: Chief Complaint: Chest pain, shortness of breath External records reviewed: Recent [facility] imaging of the chest noted in the chart Factors affecting care: Hypertension, hyperlipidemia, cardiomegaly Social determinants of health: Alcohol abuse History obtained from others: none Consults: none ALL IMAGES (IF OBTAINED) HAVE BEEN PERSONALLY REVIEWED AND INTERPRETED BY MYSELF. MDM Narrative: Patient was initially tachycardic, hypertensive otherwise hemodynamically stable afebrile. Lungs were clear heart was fast but S1-S2 I considered the following differential diagnosis: PE, pneumonia, arrhythmia, ACS, electrolyte abnormality I obtained a CT of the chest rule out PE or pneumonia obtained blood work including troponin BMP and a BNP. EKG with sinus tachycardia, normal axis, normal normals, no STEMI Troponin is negative, no evidence of myocardial ischemia BNP within normal limits suggestive of no increased myocardial stretch CBC with leukocytosis suggestive of systemic inflammation, no anemia or thrombocytopenia noted BMP with mild hyponatremia, no other electrolyte abnormalities, no anion gap to suggest endorgan hypoperfusion, no acute kidney injury CTA of the chest is negative for PE or pneumonia The patient and/or family, caregivers express understanding. The patient and/or family, caregivers agrees with the plan. Shared decision making: I will have a discussion with the patient and or visitors regarding risk/benefits of further testing or admission. They will be made aware of of the risk/benefits inherent in this decision they will be given the opportunity to voice understanding. Total critical care time today provided was at least 0 [] minutes. This excludes separately billable procedures. Critical care time (if documented) is secondary to the patient having high probability of clinically significant/life threatening deterioration in the patient's condition which required my urgent intervention. Impression: 1. Chest pain 2. Shortness of breath 3. Hyponatremia 4. Leukocytosis Dispo: pending delta troponin. Signed out to pm physician pending delta trop Lab Data Attestation: I reviewed the patient's lab results. Labs: Laboratory Results - last 24 hr 11/11/22 17:30 Troponin I High Sens 15 Radiography Diagnostic Testing: Clinical Impression(s) from Imaging Studies Chest CTA 11/11/22 15:09 IMPRESSION: No acute cardiac pulmonary pathology. Specifically no evidence for pulmonary embolus. Electronically Signed: Freddie Tong MD at 16:12 EDT , Discharge Plan Triage Chief Complaint: Shortness of Breath Other Complaint: Chest Pain ED Provider: Ernie Sandy Dx/Rx/DC Orders Instructions: Understanding Tachycardia, Chest Pain [facility] Prescriptions: No Action NK Primary Care Provider: Care Physician,No Primary Referrals: Sangeetha Perez MD [Med Staff - [employer] [facility] Director] - Activity Restrictions/Additional Instructions: Thank you for trusting us with your care today! Please take a daily aspirin (81 mg) Please return to the emergency department if your symptoms change or worsen. Specifically if you develop worsening chest pain, lose consciousness, if your pain returns and worsens. Please follow with your primary care physician for further outpatient evaluation and management. Disposition Disposition: Home, Self Care Discharge Date/Time: 11/11/22 18:29
[2022-11-11 15:15] LABS: Absolute Lymphocyte Count 1.19 X10^3/uL (0.83-4.51); Absolute Neutrophil Count 9.1 X10^3/uL (2.0-7.7); Basophil# 0.12 X10^3/uL; Basophil% 1.1 % (0-1); Eosinophil# 0.01 X10^3/uL; Eosinophils% 0.1 % (0-5); Hematocrit 44.1 % (40-54); Hemoglobin 15.1 g/dL (13.0-16.5); Lymphocyte # 1.19 X10^3/ul (0.83-4.51); Lymphocyte % 10.5 % (19-41); Mean Corp Hgb Conc 34.2 g/dL (32-36); Mean Corpuscular Hgb 31.9 pg (27.0-32.0); Mean Platelet Vol. 9.4 fl (6.2-12.0); Monocyte# 0.93 X10^3/uL; Monocyte% 8.2 % (0-10); NRBC Flagged by Analyzer 0 % (0-5); Neutrophil # 9.07 X10^3/uL (2.7-7.7); Neutrophil % 79.8 % (47-70); Platelet Count 271 K/mm3 (150-450); RBC Distribution Width CV 12.2 % (11.6-14.6); Red Blood Count 4.74 M/mm3 (4.6-6.2); White Blood Count 11.4 K/mm3 (4.4-11.0)
[2022-11-11 15:17] VITALS: PULSE 107
[2022-11-11] MEDS: Aspirin 81 MG TAB.CHEW 324 MG PO (15:22)
[2022-11-11 15:23] VITALS: BMI 29.3
[2022-11-11 15:30] LABS: BNP,B-Type NATRIURETIC PEPTIDE 63.5 pg/mL (0-100)
[2022-11-11 15:33] LABS: Anion Gap 9 (5-15); BUN 9 mg/dL (7-18); BUN/Creat Ratio 7.7 RATIO (10-20); Calcium,Total 9.1 mg/dL (8.5-10.1); Chloride 101 mmol/L (98-107); Creatinine, Serum 1.17 mg/dL (0.70-1.30); EST Glomerular Filtration Rate 70 mL/min (>60); Est Glom Filt Rate - Afr Amer 84 mL/min (>60); Estimated Creatinine Clearance 66.65 ml/min; Glucose 87 mg/dL (74-106); Potassium 3.9 mmol/L (3.5-5.1); Sodium Level 135 mmol/L (136-145); Troponin-I HS (w/2H Reflex) 17 pg/mL (3.0-78.0)
[2022-11-11] MEDS: 0.9% Normal Saline (500mL Bag) 500 ML 999 ML IV (17:04)
[2022-11-11 17:13] LABS: Reflex Troponin-HS? (from REC) Y
[2022-11-11 17:31] VITALS: BP 145/112
[2022-11-11 18:04] LABS: Troponin-I HS 15 pg/mL (3.0-78.0)
[2022-11-11 18:28] VITALS: BP 128/75; PULSE 89; RESP 16; O2SAT 95
== END 2022-11-11 18:29 | disposition home or self-care (01) ==
PROVIDERS: Emergency Provider Emergency Medicine; Visit Provider Emergency Medicine
DX: R07.9 Chest pain, unspecified (principal); E87.1 Hypo-osmolality and hyponatremia; F10.10 Alcohol abuse, uncomplicated; I10 Essential (primary) hypertension; E78.5 Hyperlipidemia, unspecified; R06.02 Shortness of breath; D72.829 Elevated white blood cell count, unspecified; F17.220 Nicotine dependence, chewing tobacco, uncomplicated; Y90.9 Presence of alcohol in blood, level not specified
CPT/HCPCS: 71275; 80048; 83880; 84484; 85025; 93005; 99285; J7040; Q9967; A4216